=== PATIENT | female | born 1985 | race Caucasian/White ===

== ENCOUNTER 2022-07-28 20:44 | Emergency (ER) | payer BC, SELFPAY ==
[2022-07-28 20:46] VITALS: BP 130/81; PULSE 95; RESP 18; TEMP 36.8; O2SAT 95
--- NOTE | 2022-07-28 20:49 | XRR_ITS ---
PROCEDURE INFORMATION: Exam: XR Right Ankle Exam date and time: 07/28/2022 9:11 PM Age: 36 years old Clinical indication: Pain; Ankle; Right; Prior surgery; Additional info: Injury TECHNIQUE: Imaging protocol: Radiologic exam of the right ankle. Views: 3 or more views. COMPARISON: No relevant prior studies available. FINDINGS: Bones/joints: Metal plate and multiple screws in the right fibula. Two screws in the medial malleolus with lucency surrounding the more anterior screw. Screw fragment in the distal tibia metaphysis. Old healed medial malleolus and distal fibula fractures. No acute fracture. Soft tissues: Normal. XR/XR ankle RT min 3V* [id number] IMPRESSION: 1. No acute fracture. 2. Lucency surrounding the anterior medial malleolus screw, consistent with loosening. Infection is not excluded.
[2022-07-29 00:34] VITALS: RESP 18; O2SAT 92
[2022-07-29] MEDS: oxyCODONE-APAP 5-325 mg Tablet 2 TAB PO (00:34)
[2022-07-29 00:50] VITALS: BP 99/66; PULSE 86; RESP 20; O2SAT 92
--- NOTE | 2022-07-29 02:18 | ED_ITS ---
HPI - Extremity Problem General: Chief complaint: Extremity Injury, Lower Stated complaint: right ankle injury, hx of surgery Time Seen by Provider: 07/28/22 23:58 Source: patient History of Present Illness: 36-year-old female with an exacerbation of chronic right ankle pain related to her previous fracture. She has hardware in that ankle. She has had to have a couple of surgeries regarding the ankle previously. She denies significant trauma to the ankle. She states that yesterday it started hurting more significantly. Today, she has had a lot of trouble bearing weight on the ankle due to significant pain mainly across the joint line of the ankle and radiating just above that. No fever. No increased swelling. No redness. MD Complaint: extremity pain and joint pain Onset (ago): day(s) Pain Consistency: constant Location: right Quality: stabbing and aching Radiation: proximal Relieving factors: immobilization and elevation Exacerbating factors: weight bearing and walking Associated symptoms: Deny chest pain, fever(s), rash or short of breath Review of Systems Const: Denies: fever(s) Card: Denies: chest pain Resp: Reports: dyspnea GI: Denies: vomiting Skin/Breast: Denies: rash Physical Exam Const: COMMON NORMALS: no acute distress GENERAL APPEARANCE: cooperative HENMT: COMMON NORMALS: normocephalic and Normal external nose present HEAD & SCALP: normocephalic NOSE: Normal external nose present Eye: COMMON NORMALS: Equal, round and reactive pupils present and EOMs intact bilaterally PUPIL: Yes Equal, round and reactive pupils present Chest: CHEST: Yes Symmetrical chest wall rise Resp: COMMON NORMALS: normal respiratory effort and No use of accessory muscles Cardio: COMMON NORMALS: regular rate and regular rhythm RATE: regular rate RHYTHM: regular rhythm Extremity: NARRATIVE EXTREMITY EXAM: Exam the right lower extremity reveals tenderness over the anterior ankle joint line. There are some distal tibial tenderness. There is tenderness over the talus. Mild swelling. No definite ankle effusion. No increased redness or heat. No pain with movement of the toes. Sensation is grossly intact. Pulses are 2+. Neuro: NATAN COMA SCALE: document GCS findings [place] coma scale eye opening: Spontaneous Natan coma scale verbal response: Orientated [place] coma scale motor response: Obey commands Natan coma scale total score: 15 Psych: COMMON NORMALS: mental status grossly normal and cooperative Course Vital Signs: Vital signs: Vital Signs Temperature 98.3 F 07/28/22 20:46 Pulse Rate 86 07/29/22 00:50 Respiratory Rate 20 H 07/29/22 00:50 Blood Pressure 99/66 07/29/22 00:50 Pulse Oximetry 92 07/29/22 00:50 Oxygen Delivery Me thod Room Air 07/28/22 20:46 MDM - Extremity (Nontraumatic) Medical Decision Making X-ray shows some lucency surrounding the anterior medial malleolus screw with likely loosening. The patient showed me an x-ray from 2 years ago with some lucency in a similar area. It is hard to tell if the lucency is worsening or not. Patient is nontoxic in appearance. There is no fever. There is no redness or significant increase in swelling. Pain will be treated. She will immobilize in a sports ankle brace. We will have her follow-up with foot and ankle surgery as an outpatient for their opinion given the hardware lucency on x-ray Lab Data Radiology Impressions Ankle X-Ray 07/28/22 20:49 IMPRESSION: 1. No acute fracture. 2. Lucency surrounding the anterior medial malleolus screw, consistent with loosening. Infection is not excluded. Discharge Plan Discharge Patient Disposition: Home Clinical Impression: Pain in ankle Condition: Stable Prescriptions: New hydrocodone-acetaminophen 5-325 mg tablet 1 tab PO Q8H PRN (Reason: pain) Qty: 7 0RF Discharge Orders: Discharge ED (Routine); Ordered 07/29/22 Ordered By: Darryn Honeycutt Patient Instructions: Arthralgia (ED) Activity Restrictions/Additional Instructions: Return for fever greater than 100, worsening pain despite treatment, increasing redness or swelling, other concerning symptoms. Wear your ankle brace for any weightbearing. Case management has been asked to refer you to a foot and ankle surgery for follow-up next week. You should get a call from them at the beginning of the week. Ice and take anti-inflammatory medications as directed for pain. Use pain medication for severe pain. Coding Level of Care Code ED Svp Programmatic Tv for Snow Ramirez
--- NOTE | 2022-07-31 09:17 | DCPLANNER ---
Addendum entered by Yary Sibley 07/31/22 14:55: ancillary services manager received the following message from the ortho clinic regarding follow up appointment: I spoke with Dr. Smith's nurse (research instrumentation technician foot and ankle) as well as Dr. Wilcox, they both feel this would be better off taken care of by her established orthopedic in [place]. Neither doctor feels comfortable taking over this patients care when it comes to a surgery such as this done by another surgeon. I called and discussed this with the patient and let her know that it is a common practice among surgeons to not take patients who have had sx elsewhere AND are able to fwup with that doctor. The patient is currently staying in [place] temporarily to take care of her mother, however she is able to see her doctor in [place]. Pt stated she is actively seeing an orthopedic in [place]. Patient also commented on only being given 7 pain pills from the ER so I suggested the patient call her primary care doctor or go to urgent care or the ER if her pain gets very bad, but to call and follow up with her ortho doctor. Patient is upset but agreed to the plan. On 07/31/22 @ 09:26 Lakeshia Eubanks Wrote To Yary Sibley Left vm with pt to call us back and schedule with . If pt calls us back we need to know when/where/who did the previous sx and try to have pt get those notes. Thank you! Original Note: ancillary services manager had message to schedule a follow up appointment for patient with ortho. ancillary services manager sent patients information to the front office staff at ortho. Patients information will be printed and reviewed. Clinic will call patient with appointment information.
--- NOTE | 2022-08-02 15:19 | DCPLANNER ---
solutions manager unable to speak with patient at this time about getting established with a primary care physician.
== END 2022-07-29 00:58 | disposition home or self-care (01) ==
PROVIDERS: Emergency Provider Emergency Medicine
DX: M25.571 Pain in right ankle and joints of right foot (principal)
CPT/HCPCS: 73610; 99283